=== PATIENT | male | born 1945 | race Caucasian/White ===

== ENCOUNTER → 2016-12-02 | Outpatient (CLI) | payer OTHER ==
--- NOTE | ~2016-12-02 | NDGEN ---
PATIENT'S NAME: MILDRED ESPINOZA [facility] AGE: 71 Y [address] ROOM: [place], [place] [address] LOCATION: [facility] ADMIT DATE: 12/02/2016 Neurodiagnostics DISCHARGE DATE: FAMILY PHYSICIAN: PHYSICIAN, NO ATTENDING PHYSICIAN: OTTO GUILLEN DATE OF PROCEDURE: 12/02/2016 PROCEDURE PERFORMED: Nerve conduction study of bilateral lower extremities as well as an EMG of the left lower extremity for gait impairment. Rule out a polyneuropathy, focal neuropathy or lumbar radiculopathy. INDICATIONS: This is a 71-year-old male patient who has had progressive gait impairment that has been ongoing for a number of years. His gait seems unsteady, wide-based with sensation with the patient having subjective feeling of imbalance but no dizziness. He does not have any experience of numbness into his lower extremities. Current workup for him includes nerve conduction studies to rule out any possibility of demyelinative slowing of the nerves of the lower extremities or low amplitudes this suggest an axonopathy. The nerve conduction studies were performed in the bilateral peroneal and tibial motor nerves as well as sural sensory nerves. There was normal motor onset latencies seen in the peroneal nerves bilaterally as well as the tibial nerves bilaterally. There was excellent amplitudes recorded and nerve conduction velocities were well within normal limits. Sensory nerve conductions were done in the bilateral sural nerves, but those were absent, that is not generally an abnormality in a patient who is 71 years old and would likely not have significance compared to the other nerves stimulated. F-wave studies were all within normal limits. Next, the needle was placed into the left vastus lateralis, tibialis anterior, medial gastrocnemius muscles. All the muscles of this chosen limb showed normal recruitment of motor unit action potentials. There was no evidence of fibrillation potentials or positive sharp waves seen. IMPRESSION: Mr. Espinoza does not reveal any evidence to support a bilateral symmetric polyneuropathy or other axonal or demyelinative. This would rule out certain pathology such as ascending polyneuropathy such as CIDP, a genetic abnormality such as hereditary motor sensory neuropathies and other variants. We will get a full account of his MRI, which he performed today. A brief look at his MRI reveals generalized global atrophy with some more atrophy seen in the cerebellum, did not appear to be any dilation of his ventricles out of PATIENT'S NAME: ARRANTS, MILDRED R [facility] AGE: 71 Y [address] ROOM: [place] [address] LOCATION: [facility] ADMIT DATE: 12/02/2016 Neurodiagnostics DISCHARGE DATE: FAMILY PHYSICIAN: PHYSICIAN, NO ATTENDING PHYSICIAN: OTTO GUILLEN proportion to his generalized atrophy. We have sent out test for B12 to make sure that those were within normal limits. The patient, on physical exam, does demonstrate normal position sense. Finally, with all these tests being normal so far, a cervical MRI will likely be considered based upon a patient who may present with an odd gait that is progressive with signs of instability in the lower extremities. The patient will have to follow up with us in the near future and we will try to put this information together for him cogently. MD LASHAWN LEUNG/nancy /[id number] dtt: 12/12/16 2233 , OTTO GUILLEN. dtd: 12/02/16 1429
== END | disposition disaster alternative care site (69) ==
LOC: GRAD 11-29 14:00
DX: R26.9 Unspecified abnormalities of gait and mobility (principal)

== ENCOUNTER → 2016-12-09 | Outpatient (CLI) | payer OTHER | END | disposition disaster alternative care site (69) | LOC: GRAD 09:18 | DX: R26.9 Unspecified abnormalities of gait and mobility (principal); M50.21 Other cervical disc displacement, high cervical region; M50.221 Other cervical disc displacement at C4-C5 level; M48.02 Spinal stenosis, cervical region; M50.823 Other cervical disc disorders at C6-C7 level; M47.892 Other spondylosis, cervical region ==